=== PATIENT | male | born 1970 | race Two or more races ===

== ENCOUNTER 2016-11-12 19:31 | Emergency (ER) | payer SELFPAY ==
[2016-11-12] MEDS ORDERED: PENICILLIN V POTASSIUM 500 MG TABLET ONE (21:02)
[2016-11-12] MEDS ORDERED: HYDROCODONE/ACETAMINOPHEN 5/325MG TABLET ONE (21:02)
== END 2016-11-12 21:12 | disposition home or self-care (01) ==
LOC: ED 19:31
DX: K08.89 Other specified disorders of teeth and supporting structures (principal)
CPT/HCPCS: 99283 ×2; A9270 ×2